=== PATIENT | male | born 1960 | race African-American/Black ===

== ENCOUNTER 2019-06-15 10:13 | Emergency (ER) | payer OTHER ==
[2019-06-15 10:36] VITALS: BP 147/90; PULSE 114; TEMP 102.7; BMI 21.4
[2019-06-15] MEDS ORDERED: ALBUTEROL SO4 2.5/IPRATROPIUM 0.5 INH SOL 3 ML VIAL.NEB. NEB ONE ×2 (11:22→11:28)
[2019-06-15] MEDS ORDERED: IBUPROFEN 600 MG TABLET (FP) PO ONE ×2 (11:22→11:29)
--- NOTE | 2019-06-15 11:30 | PDOC ---
History of Present Illness - General History Source: Patient Exam Limitations: No Limitations - History of Present Illness Initial Comments: 06/15/19 11:25 Patient is a 59-year-old male who presents to the ED with fever, body aches, cough and general unwell feeling since last night. He has a history of COPD and states he feels short of breath. He denies any sick contacts. He has not taken anything for his fever. He denies any allergies to medications. He does admit to having a cough but states that it is a dry cough and is not bringing up any sputum. He has been using his albuterol nebulizer without relief. <Shelly Finney - Last Filed: 06/15/19 12:46> <Homer Matute - Last Filed: 06/15/19 15:30> - General Chief Complaint: Cold Symptoms Stated Complaint: DIFFICULTY BREATHING Time Seen by Provider: 06/15/19 11:15 Past History - Past Medical History Asthma: Yes COPD: Yes - Surgical History Lung Surgery: (FOR RT SIDE PNEUMO W INTERNAL BLEEDING.) - Psycho Social/Smoking Cessation Hx Smoking History: Former smoker Have you smoked in the past 12 months: No Number of Cigarettes Smoked Daily: 6 Information on smoking cessation initiated: No 'Breaking Loose' booklet given: 06/04/14 Hx Alcohol Use: No Drug/Substance Use Hx: No Substance Use Type: None Hx Substance Use Treatment: No <Shelly Finney - Last Filed: 06/15/19 12:46> <Homer Matute - Last Filed: 06/15/19 15:30> - Past Medical History Allergies/Adverse Reactions: Allergies Allergy/AdvReac Type Severity Reaction Status Date / Time No Known Allergies Allergy Verified 11/22/15 14:16 Home Medications: Ambulatory Orders Tiotropium Bath [Spiriva] 1 inh PO DAILY 06/04/14 Albuterol Sulfate Inhaler - [Ventolin HFA Inhaler -] 1 - 2 inh PO QID #1 Budesonide/Formeterol Fumarate [SYMBICORT 80/4.5mcg -] 2 inh IH BID #1 inhaler 06/13/14 oxyCODONE HCL [Roxicodone -] 5 mg PO Q6H PRN #10 tablet 06/13/14 Oseltamivir Phosphate [Tamiflu] 75 mg PO BID #9 capsule 06/15/19 Review of Systems - Review of Systems Comments:: 06/15/19 11:26 - Review of Systems Able to Perform ROS?: Yes Constitutional: No: Night Sweats, Weakness; positive: fever, chills, loss of appetite HEENTM: No: Eye Pain, Vision changes, Ear Pain, Throat Pain, Throat Swelling, Mouth Pain, Difficulty Swallowing Respiratory: No: Sputum Production; positive: Cough, Shortness of Breath, Wheezing Cardiac (ROS): No: Chest Pain, Chest Tightness, Palpitations, Irregular Heart Beat, Edema ABD/GI: No: Nausea, Vomiting, Abdominal Pain, Diarrhea : No Dysuria, No Hematuria, No Frequency, No Urgency Musculoskeletal: No: Muscle Pain, Back Pain, Joint Pain, Muscle Weakness, Neck Pain; positive: Body aches Integumentary: No: Lesions, Rash Neurological: No: Headache, Numbness, Tingling, Weakness, Speech Difficulties <Shelly Finney - Last Filed: 06/15/19 12:46> *Physical Exam - Vital Signs Last Vital Signs Temp Pulse Resp BP Pulse Ox 102.7 F H 114 H 20 147/90 95 06/15/19 10:34 06/15/19 10:34 06/15/19 10:34 06/15/19 10:34 06/15/19 10:34 - Physical Exam 06/15/19 11:27 - Physical Exam General Appearance: Nourished, Appropriately Dressed, No Distress; general unwell appearing but nontoxic HEENT: EOMI, Normal Voice, moderate pharyngeal Erythema, No Muffled/Hoarse voice , No Tonsillar Exudate, moderate tonsillar Erythema, No Nasal Congestion, No Rhinorrhea, Hearing Grossly Normal, TMs Normal, No TM Bulging, No TM Dullness, No TM Erythema. Positive coryza Neck: Supple, anterior cervical lymphadenopathy appreciated bilaterally, No Rigidity, No Decreased range of motion Respiratory/Chest: Lungs Clear, Normal Breath Sounds. No Respiratory Distress, No Accessory Muscle Use. Good air entry bilaterally, no adventitious lung sounds, dry hacking cough appreciated Cardiovascular: Regular Rhythm, Regular Rate, S1, S2 Gastrointestinal/Abdominal: Normal Bowel Sounds, Soft. Non-tender, No Guarding , No Rebound, No Rigidity Musculoskeletal: Normal Inspection. No Decreased Range of Motion Extremity: Normal Capillary Refill, Normal Inspection Integumentary: Normal Color, Dry. No Rash Neurologic: business account leader II-XII NML intact, Fully Oriented, Alert, Normal Mood/Affect, Normal Response <Shelly Finney - Last Filed: 06/15/19 12:46> - Vital Signs Last Vital Signs Temp Pulse Resp BP Pulse Ox 102.7 F H 114 H 20 147/90 95 06/15/19 10:34 06/15/19 10:34 06/15/19 10:34 06/15/19 10:34 06/15/19 10:34 <Homer Matute - Last Filed: 06/15/19 15:30> ED Treatment Course - ADDITIONAL ORDERS Additional order review: 06/15/19 12:46 Laboratory Tests 06/15/19 11:45 Influenza A (Rapid) Positive A Influenza B (Rapid) Negative - RADIOLOGY Radiology Studies Ordered: Category Date Time Status CHEST PA & LAT [RAD] Stat Radiology 06/15/19 11:22 Ordered <Shelly Finney - Last Filed: 06/15/19 12:46> - Medications Given in the ED: ED Medications Discontinued Medications Generic Name Dose Route Start Last Admin Trade Name Freq PRN Reason Stop Dose Admin Albuterol/Ipratropium 1 amp 06/15/19 11:22 06/15/19 11:34 Duoneb - NEB 06/15/19 11:23 1 amp ONCE ONE Administration Ibuprofen 600 mg 06/15/19 11:22 06/15/19 11:35 Motrin - PO 06/15/19 11:23 600 mg ONCE ONE Administration Oseltamivir Phosphate 75 mg 06/15/19 12:15 06/15/19 12:28 Tamiflu - PO 06/15/19 12:16 75 mg ONCE ONE Administration <Homer Matute - Last Filed: 06/15/19 15:30> Medical Decision Making - Medical Decision Making 06/15/19 11:29 Assessment: Patient is a 59-year-old male with fever, body aches, cough and shortness of breath since yesterday. Plan: -DuoNeb x1 -Chest x-ray -Flu swab -Motrin p.o. -Will reassess 06/15/19 12:46 The patient has been made aware that he is influenza A+. We will start him on Tamiflu in the ED. We will send him home with another 4 days of Tamiflu. The patient should follow-up with his primary doctor within 1 to 2 days for repeat evaluation. He should increase fluids and get plenty of rest. He should take Tylenol and ibuprofen for fevers. He can continue to use his nebulizer treatments to help with his cough. He understands and agrees with this treatment and plan the patient is stable for discharge. <Shelly Finney - Last Filed: 06/15/19 12:46> - Medical Decision Making 06/15/19 15:30 I reviewed the case of the mid-level practitioner and was available for consultation while in the emergency department <Homer Matute - Last Filed: 06/15/19 15:30> Discharge - Discharge Information Problems reviewed: Yes <Shelly Finney - Last Filed: 06/15/19 12:46> <Homer Matute - Last Filed: 06/15/19 15:30> - Discharge Information Clinical Impression/Diagnosis: Influenza A Condition: Stable Disposition: HOME - Additional Discharge Information Prescriptions: Oseltamivir Phosphate [Tamiflu] 75 mg PO BID #9 capsule - Follow up/Referral Referrals: Zita Joyce MD [Primary Care Provider] - 2 Days - Patient Discharge Instructions Patient Printed Discharge Instructions: DI for Influenza -- Adult Additional Instructions: Get plenty of rest and drink plenty of fluids. Take Tylenol or ibuprofen for fevers or body aches. Take the Tamiflu as prescribed and complete the entire course. Follow-up with your primary doctor within 1 to 2 days for repeat evaluation. - Post Discharge Activity Work/Back to School Note: Back to Work
[2019-06-15] MEDS ORDERED: OSELTAMIVIR PHOSPHATE 75 MG CAPSULE PO ONE (12:15)
[2019-06-15] MEDS ORDERED: OSELTAMIVIR PHOSPHATE 75 MG CAPSULE ONE (12:24)
== END 2019-06-15 13:20 | disposition home or self-care (01) ==
LOC: JER 10:13
PROC: 3E0F7GC Introduction of Other Therapeutic Substance into Respiratory Tract, Via Natural or Artificial Opening (ICD-10-PCS; principal; 2019-06-15)
DX: J09.X2 Influenza due to identified novel influenza A virus with other respiratory manifestations (principal)
CPT/HCPCS: 71046-TC-FY; 87804; 94640; 99283-25

== ENCOUNTER 2021-06-18 03:35 | Observation (INO) | payer OTHER ==
[2021-06-18] MEDS ORDERED: ASPIRIN 81 MG CHEWABLE TABLETS ONE (03:44)
[2021-06-18 05:08] LABS: MEAN PLT VOLUME 7.3 fl (7.5-11.1)
[2021-06-18 05:10] LABS: BASO % 1.2 % (0-2.0); EOS % 2.6 % (0-4.5); HEMATOCRIT 43.1 % (35.4-49); HEMOGLOBIN 14.6 GM/dL (11.7-16.9); LYMPH % 28.9 % (8-40); MCH 33.2 pg (25.7-33.7); MCHC 33.9 g/dl (32.0-35.9); MONO % 10.3 % (3.8-10.2); PLATELET COUNT 243 10^3/uL (134-434); RDW 12.6 % (11.9-15.9); WHITE BLOOD COUNT 5.6 K/mm3 (4.0-10.0)
[2021-06-18 05:18] LABS: INR 1.03 (0.83-1.09); PROTHROMBIN TIME (PATIENT) 11.8 SEC (9.7-13.0)
[2021-06-18] MEDS ORDERED: ACETAMINOPHEN 1000 MG/100 ML BAG IVPB ONE (05:19)
[2021-06-18 05:21] LABS: ACTIVATED PTT 31.7 SECONDS (25.2-36.5)
[2021-06-18] MEDS ORDERED: ACETAMINOPHEN INJECTION 100 ML IVPB ONE (05:28)
[2021-06-18 05:34] LABS: CALCIUM 8.9 mg/dL (8.5-10.1)
[2021-06-18 05:35] LABS: ALBUMIN 3.9 g/dl (3.4-5.0); BLOOD UREA NITROGEN 8.4 mg/dL (7-18)
[2021-06-18 05:39] LABS: TOT PROT 7.1 g/dl (6.4-8.2)
[2021-06-18 05:43] LABS: N-TERMINAL BNP 47.5 pg/ml (5-125)
[2021-06-18] MEDS ORDERED: ENOXAPARIN NA (PORCINE) 40 MG/0.4 ML DISP.SYRIN SQ ONE (08:37)
[2021-06-18] MEDS: ALBUTEROL SO4 HFA INHALER IH SCH ×4 (08:39→20:35)
[2021-06-18] MEDS: TIOTROPIUM BROMIDE 2.5 MCG (SPIRIVA) RESPIMAT INHALER IH SCH (09:34)
[2021-06-18] MEDS: BUDESONIDE/FORMETEROL FUMARATE 80/4.5 mcg INHALER IH SCH ×2 (09:34→21:35)
[2021-06-18] MEDS: ENOXAPARIN NA (PORCINE) 40 MG/0.4 ML DISP.SYRIN SQ SCH (09:34)
[2021-06-18] MEDS ORDERED: FOLIC ACID INJECTION - 1 MG, THIAMINE HCL 100 MG, MULTIVIT INJECTION ADULT 10 ML in SOD... IVPB ONE (10:00)
[2021-06-18 10:49] LABS: PH,URINE 7.5 (5.0-8.0); URINE APPEARANCE CLEAR; URINE BILIRUBIN NEGATIVE (NEGATIVE); URINE COLOR YELLOW; URINE GLUCOSE (UA) NEGATIVE (NEGATIVE); URINE KETONE NEGATIVE (NEGATIVE); URINE LEUK ESTERASE NEGATIVE (NEGATIVE); URINE NITRITE NEGATIVE (NEGATIVE); URINE PROTEIN NEGATIVE (NEGATIVE)
[2021-06-18 10:59] LABS: METHADONE, UR NEGATIVE (NEGATIVE); PHENCYCLIDINE,URINE NEGATIVE (NEGATIVE); URINE BENZODIAZEPINES NEGATIVE (NEGATIVE)
[2021-06-18 11:00] LABS: OPIATES, URI NEGATIVE (NEGATIVE); URINE BARBITURATES NEGATIVE (NEGATIVE)
[2021-06-18 11:04] LABS: COCAINE, UR POSITIVE (NEGATIVE); URINE AMPHETAMINES NEGATIVE (NEGATIVE)
[2021-06-18 12:57] LABS: VENOUS BASE EXCESS -4.7 mmol/L (-2-2); VENOUS PCO2 37.9 mmHg (38-52); VENOUS PH 7.349 (7.310-7.410)
[2021-06-18] MEDS ORDERED: ALBUTEROL SO4 HFA INHALER IH ONE (13:42)
[2021-06-18] MEDS ORDERED: FAMOTIDINE 20 MG TABLET PO PRN (17:22)
[2021-06-18] MEDS ORDERED: SIMETHICONE 80 MG TAB.CHEW (FP) PO ONE (17:23)
[2021-06-18] MEDS ORDERED: ACETAMINOPHEN 325 MG TABLET (FP) PO PRN (17:53)
[2021-06-19 00:44] VITALS: BMI 21.5
[2021-06-19] MEDS: ALBUTEROL SO4 HFA INHALER IH SCH ×2 (01:05→05:42)
[2021-06-19] MEDS ORDERED: ALBUTEROL SO4 HFA INHALER IH PRN (07:41)
[2021-06-19 08:25] LABS: HEMATOCRIT 42.6 % (35.4-49); MCH 32.5 pg (25.7-33.7); MCHC 32.9 g/dl (32.0-35.9); MEAN CELL VOLUME 98.9 fl (80-96); MEAN PLT VOLUME 7.2 fl (7.5-11.1); PLATELET COUNT 238 10^3/uL (134-434); WHITE BLOOD COUNT 5.3 K/mm3 (4.0-10.0)
[2021-06-19 08:53] LABS: CALCIUM 8.5 mg/dL (8.5-10.1)
[2021-06-19 08:54] LABS: BLOOD UREA NITROGEN 11.1 mg/dL (7-18); MAGNESIUM 2.4 mg/dL (1.8-2.4)
[2021-06-19 08:55] LABS: PHOSPHOROUS 3.4 mg/dL (2.5-4.9)
[2021-06-19] MEDS: BUDESONIDE/FORMETEROL FUMARATE 80/4.5 mcg INHALER IH SCH (09:02)
[2021-06-19] MEDS: TIOTROPIUM BROMIDE 2.5 MCG (SPIRIVA) RESPIMAT INHALER IH SCH (09:02)
[2021-06-19] MEDS: ENOXAPARIN NA (PORCINE) 40 MG/0.4 ML DISP.SYRIN SQ SCH (09:02)
[2021-06-19 18:49] VITALS: BP 145/76; PULSE 74; TEMP 97.6
[2021-06-20] MEDS ORDERED: amLODIPine BESYLATE 5 MG TABLET (FP) PO SCH (10:00)
== END 2021-06-19 18:56 | disposition left against medical advice (07) ==
LOC: JER 03:35 → UNDOADMOB 05:48 → INTOOBSV 05:48 → JERBED 05:48 → J4S 20:28
PROVIDERS: ADMIT Internal Medicine
PROC: 3E033NZ Introduction of Analgesics, Hypnotics, Sedatives into Peripheral Vein, Percutaneous Approach (ICD-10-PCS; principal; 2021-06-18)
PROC: 3E023GC Introduction of Other Therapeutic Substance into Muscle, Percutaneous Approach (ICD-10-PCS; 2021-06-18)
PROC: 3E033GC Introduction of Other Therapeutic Substance into Peripheral Vein, Percutaneous Approach (ICD-10-PCS; 2021-06-18)
DX: R55 Syncope and collapse (principal); J44.9 Chronic obstructive pulmonary disease, unspecified; I10 Essential (primary) hypertension; J93.83 Other pneumothorax; F19.10 Other psychoactive substance abuse, uncomplicated; Z29.9 Encounter for prophylactic measures, unspecified
CPT/HCPCS: 36415; 70450-TC; 71045-TC-FY; 72125-TC; 80048; 80053; 80307; 81003; 82550; 82803; 83735; 83880; 84100; 84443; 84484; 85025; 85027; 85610; 85730; 93005; 93010; 93306-TC; 93880-TC; 96365; 96372; 96375; 97116-GP; 97162-GP; 99285-25; C9803; G0378; U0003; U0005

== ENCOUNTER 2023-05-01 17:03 | Inpatient (IN) | payer OTHER ==
[2023-05-01 18:06] VITALS: BMI 21.9
[2023-05-01] MEDS ORDERED: ALBUTEROL SO4 HFA INHALER IH PRN (20:49)
[2023-05-01] MEDS ORDERED: MAG HYDROX/AL HYDROX/SIMETH 30 ML UNIT-DOSE CUP PO PRN (23:24)
[2023-05-01] MEDS ORDERED: BENZOCAINE/MENTHOL (CHLORASEPTIC ) LOZENGE MM PRN (23:24)
[2023-05-01] MEDS ORDERED: P-EPHED 60MG/TRIPROLIDI 2.5MG TABLET PO PRN (23:24)
[2023-05-01] MEDS ORDERED: IBUPROFEN 400 MG TABLET (FP) PO PRN (23:24)
[2023-05-01] MEDS ORDERED: LOPERAMIDE HCL 2 MG CAPSULE PO PRN (23:24)
[2023-05-01] MEDS ORDERED: BENZONATATE 200 MG CAPSULE PO PRN (23:24)
[2023-05-01] MEDS ORDERED: hydrOXYzine PAMOATE 25 MG CAPSULE (FP) PO PRN (23:24)
[2023-05-01] MEDS ORDERED: ACETAMINOPHEN 325 MG TABLET (FP) PO PRN (23:24)
[2023-05-01] MEDS ORDERED: MAGNESIUM HYDROX 2400MG/30ML ORAL SUSPENSION 30 ML CUP PO PRN (23:24)
[2023-05-01] MEDS ORDERED: POLYETHYLENE GLYCOL (HEALTHYLAX) 3350 17 GM PACKET PO PRN (23:24)
[2023-05-01] MEDS ORDERED: NICOTINE POLACRILEX 2 MG GUM BUC PRN (23:24)
[2023-05-01] MEDS ORDERED: COLLOIDAL OATMEAL 1 BAR EACH TP PRN (23:24)
[2023-05-01] MEDS ORDERED: guaiFENesin 600 MG TABLET.ER (FP) PO PRN (23:24)
[2023-05-02] MEDS: ASPIRIN 81 MG CHEWABLE TABLETS PO SCH ×2 (02:21→02:25)
[2023-05-02] MEDS: MELATONIN 5 MG TABLETS PO SCH (02:21)
[2023-05-02] MEDS: amLODIPine BESYLATE 5 MG TABLET (FP) PO ONE ×2 (02:22→02:24)
[2023-05-02] MEDS: ATORVASTATIN CA 40 MG TABLET (FP) PO SCH (02:22)
[2023-05-02 02:30] VITALS: RESP 18
[2023-05-02] MEDS: FLUTICASONE/UMECLIDIN/VILANTER(100-62.5-25 TRELEGY ELLIPTA) INAHLER IH SCH (06:01)
[2023-05-02] MEDS: TUBERCULIN PPD 5 TU/0.1ML SYRINGE (IN PATIENT USE ONLY) ID ONE (07:50)
[2023-05-02 09:37] LABS: HEMOGLOBIN 13.3 GM/dL (11.7-16.9); MCHC 33.2 g/dl (32.0-35.9); MEAN CELL VOLUME 96.3 fl (80-96); MEAN PLT VOLUME 7.3 fl (7.5-11.1); PLATELET COUNT 255 10^3/uL (134-434); RBC 4.16 M/mm3 (4.00-5.60); RDW 13.6 % (11.9-15.9); WHITE BLOOD COUNT 5.4 K/mm3 (4.0-10.0)
[2023-05-02 09:40] LABS: CHLORIDE 112 mmol/L (98-107); SODIUM 144 mmol/L (136-145)
[2023-05-02 09:50] LABS: URINE APPEARANCE CLEAR; URINE BILIRUBIN NEGATIVE (NEGATIVE); URINE COLOR YELLOW; URINE GLUCOSE (UA) NEGATIVE (NEGATIVE); URINE KETONE TRACE (NEGATIVE); URINE LEUK ESTERASE NEGATIVE (NEGATIVE); URINE NITRITE NEGATIVE (NEGATIVE); URINE PROTEIN NEGATIVE (NEGATIVE)
[2023-05-02 09:55] LABS: CALCIUM 9.3 mg/dL (8.5-10.1)
[2023-05-02 09:56] LABS: ALBUMIN 3.2 g/dl (3.4-5.0); ANION GAP 5 mmol/L (4-13); BLOOD UREA NITROGEN 15.4 mg/dL (7-18); CO2 27 mmol/L (21-32); GLUCOSE,RANDOM 96 mg/dL (74-106)
[2023-05-02 09:59] LABS: SGOT/AST 9 U/L (15-37); SGPT/ALT 13 U/L (13-61)
[2023-05-02 10:00] LABS: BILIRUBIN,TOTAL 0.6 mg/dL (0.2-1); TOT PROT 6.2 g/dl (6.4-8.2)
[2023-05-02 10:02] LABS: ALK PHOS 77 U/L (45-117)
[2023-05-02] MEDS: PRENATAL VITAMINS W/ FOLIC ACID TABLET (FP) PO SCH (10:10)
[2023-05-02] MEDS: NIFEdipine E.R 60 MG TABLET PO SCH (10:10)
[2023-05-02 15:34] LABS: SYPHILIS W/ RPR CONF NON-REACTIVE (NONREACTIVE)
[2023-05-02] MEDS: THIAMINE HCL 100 MG TABLET (FP) PO SCH (21:02)
[2023-05-02] MEDS: traZODone HCL 50 MG TABLET (FP) PO SCH (21:09)
[2023-05-03] MEDS: IBUPROFEN 600 MG TABLET (FP) PO PRN (19:34)
[2023-05-04] MEDS: BENZOCAINE 20 % GEL TUBE MM PRN (21:38)
[2023-05-05] MEDS: ASPIRIN 81 MG CHEWABLE TABLETS PO SCH (12:32)
[2023-05-05 12:34] VITALS: TEMP 98
[2023-05-05 12:35] VITALS: BP 133/91; PULSE 74
== END 2023-05-06 01:25 | disposition short-term general hospital (02) | DRG 772 ==
LOC: YASAS 17:03 → Y5N 05-02 01:53
PROVIDERS: ADMIT Allergy & Immunology; ATTEND Psychiatry & Neurology Pain Medicine
PROC: HZ42ZZZ Group Counseling for Substance Abuse Treatment, Cognitive-Behavioral (ICD-10-PCS; principal; 2023-05-02)
DX: F14.20 Cocaine dependence, uncomplicated (principal); F10.20 Alcohol dependence, uncomplicated; F17.210 Nicotine dependence, cigarettes, uncomplicated; F41.9 Anxiety disorder, unspecified; I10 Essential (primary) hypertension; J44.9 Chronic obstructive pulmonary disease, unspecified; R07.9 Chest pain, unspecified; R06.00 Dyspnea, unspecified; R26.89 Other abnormalities of gait and mobility; I69.898 Other sequelae of other cerebrovascular disease; I69.851 Hemiplegia and hemiparesis following other cerebrovascular disease affecting right dominant side; Z99.89 Dependence on other enabling machines and devices
CPT/HCPCS: 36415; 80053; 80307; 81003; 82962; 85027; 86780; 86803; 87635; 87811; 93005; 93010

== ENCOUNTER 2023-05-05 13:14 | Observation (INO) | payer OTHER ==
[2023-05-05] MEDS ORDERED: LIDOCAINE 5% TOPICAL PATCH TP ONE (14:35)
[2023-05-05] MEDS ORDERED: SODIUM CHLORIDE 0.9% 500 ML INFUS.BAG IV ONE (14:35)
[2023-05-05] MEDS ORDERED: LIDOCAINE 4% PATCH TP ONE ×2 (14:44)
[2023-05-05 15:00] LABS: BASO % 1.3 % (0-2.0); EOS % 3.1 % (0-4.5); HEMATOCRIT 48.3 % (35.4-49); HEMOGLOBIN 15.8 GM/dL (11.7-16.9); MCH 31.4 pg (25.7-33.7); MCHC 32.7 g/dl (32.0-35.9); MEAN CELL VOLUME 96.1 fl (80-96); MEAN PLT VOLUME 7.1 fl (7.5-11.1); MONO % 8.5 % (3.8-10.2); NEUT % 69.1 % (42.8-82.8); PLATELET COUNT 325 10^3/uL (134-434); RBC 5.02 M/mm3 (4.00-5.60); RDW 13.6 % (11.9-15.9); WHITE BLOOD COUNT 7.9 K/mm3 (4.0-10.0)
[2023-05-05 15:07] LABS: INR 0.99 (0.83-1.09); PROTHROMBIN TIME (PATIENT) 11.5 SEC (9.7-13.0)
[2023-05-05 15:09] LABS: ACTIVATED PTT 32.2 SECONDS (25.2-36.5)
[2023-05-05 15:26] LABS: CALCIUM 9.9 mg/dL (8.5-10.1)
[2023-05-05 15:27] LABS: BLOOD UREA NITROGEN 14.4 mg/dL (7-18)
[2023-05-05 15:30] LABS: CREATININE 0.9 mg/dL (0.55-1.3)
[2023-05-05 15:32] LABS: BILIRUBIN,TOTAL 1.2 mg/dL (0.2-1); TOT PROT 7.9 g/dl (6.4-8.2)
[2023-05-05 15:33] LABS: ALBUMIN 4.1 g/dl (3.4-5.0)
[2023-05-05] MEDS ORDERED: LACTATED RINGERS SOLUTION 1,000 ML IV SCH (17:45)
[2023-05-05] MEDS ORDERED: IBUPROFEN 400 MG TABLET (FP) PO PRN (17:45)
[2023-05-05] MEDS ORDERED: LIDOCAINE PATCH REMOVAL MC ONE (22:00)
[2023-05-05] MEDS ORDERED: ATORVASTATIN CA 80 MG TABLET (FP) ONE (22:10)
[2023-05-05] MEDS: ATORVASTATIN CA 80 MG TABLET (FP) PO SCH (22:22)
[2023-05-05] MEDS: LIDOCAINE PATCH REMOVAL MC SCH (22:22)
[2023-05-05] MEDS: BUDESONIDE/FORMETEROL FUMARATE 80/4.5 mcg INHALER IH SCH (22:22)
[2023-05-06 07:16] LABS: EOS % 3.6 % (0-4.5); HEMATOCRIT 40.2 % (35.4-49); HEMOGLOBIN 13.3 GM/dL (11.7-16.9); LYMPH % 23.8 % (8-40); MCH 31.8 pg (25.7-33.7); MEAN CELL VOLUME 96.5 fl (80-96); MEAN PLT VOLUME 7.1 fl (7.5-11.1); NEUT % 62.6 % (42.8-82.8); PLATELET COUNT 263 10^3/uL (134-434); RBC 4.17 M/mm3 (4.00-5.60); RDW 13.5 % (11.9-15.9); WHITE BLOOD COUNT 6.2 K/mm3 (4.0-10.0)
[2023-05-06 07:30] LABS: POTASSIUM 3.9 mmol/L (3.5-5.1)
[2023-05-06 07:37] LABS: ALBUMIN 3.3 g/dl (3.4-5.0); BLOOD UREA NITROGEN 13.6 mg/dL (7-18); MAGNESIUM 2.2 mg/dL (1.8-2.4)
[2023-05-06 07:39] LABS: PHOSPHOROUS 3.4 mg/dL (2.5-4.9)
[2023-05-06 07:40] LABS: CREATININE 0.7 mg/dL (0.55-1.3)
[2023-05-06 07:41] LABS: BILIRUBIN,TOTAL 1.1 mg/dL (0.2-1); TOT PROT 6.5 g/dl (6.4-8.2)
[2023-05-06 07:44] LABS: CALCIUM 8.4 mg/dL (8.5-10.1)
[2023-05-06] MEDS: NIFEdipine E.R 60 MG TABLET PO SCH (11:57)
[2023-05-06] MEDS: ASPIRIN 81 MG CHEWABLE TABLETS PO SCH (11:57)
[2023-05-06] MEDS: NICOTINE 14 MG/24 HOURS TOPICAL PATCH TD SCH (11:57)
[2023-05-06] MEDS: ENOXAPARIN NA (PORCINE) 40 MG/0.4 ML DISP.SYRIN SQ SCH (11:57)
[2023-05-06] MEDS: PANTOPRAZOLE 40 MG TABLET PO SCH (11:57)
[2023-05-06] MEDS: BUDESONIDE/FORMETEROL FUMARATE 80/4.5 mcg INHALER IH SCH ×2 (12:31→21:32)
[2023-05-06 13:34] VITALS: RESP 18
[2023-05-06 14:43] VITALS: BMI 20.5
[2023-05-06] MEDS ORDERED: SODIUM CHLORIDE 1,000 ML IV SCH (16:45)
[2023-05-06 17:35] LABS: METHADONE, UR NEGATIVE (NEGATIVE); URINE BENZODIAZEPINES NEGATIVE (NEGATIVE)
[2023-05-06 17:36] LABS: OPIATES, URI NEGATIVE (NEGATIVE)
[2023-05-06 17:41] LABS: COCAINE, UR POSITIVE (NEGATIVE); PHENCYCLIDINE,URINE NEGATIVE (NEGATIVE); URINE AMPHETAMINES NEGATIVE (NEGATIVE); URINE BARBITURATES NEGATIVE (NEGATIVE)
[2023-05-06] MEDS: ATORVASTATIN CA 80 MG TABLET (FP) PO SCH (21:13)
[2023-05-06] MEDS: LIDOCAINE PATCH REMOVAL MC SCH (21:36)
[2023-05-07 06:26] VITALS: TEMP 98.4
[2023-05-07] MEDS: ENOXAPARIN NA (PORCINE) 40 MG/0.4 ML DISP.SYRIN SQ SCH (10:12)
[2023-05-07] MEDS: ASPIRIN 81 MG CHEWABLE TABLETS PO SCH (10:12)
[2023-05-07] MEDS: PANTOPRAZOLE 40 MG TABLET PO SCH (10:12)
[2023-05-07] MEDS: NICOTINE 14 MG/24 HOURS TOPICAL PATCH TD SCH (10:12)
[2023-05-07] MEDS: NIFEdipine E.R 60 MG TABLET PO SCH (10:12)
[2023-05-07] MEDS: BUDESONIDE/FORMETEROL FUMARATE 80/4.5 mcg INHALER IH SCH (10:13)
[2023-05-07 11:40] VITALS: BP 128/74; PULSE 64
== END 2023-05-07 04:05 | disposition other institution (70) ==
LOC: JER 13:14 → JERBED 16:35 → J4W 05-06 13:38
PROVIDERS: ADMIT Internal Medicine; ATTEND Internal Medicine
PROC: 3E023GC Introduction of Other Therapeutic Substance into Muscle, Percutaneous Approach (ICD-10-PCS; principal; 2023-05-05)
PROC: 3E0337Z Introduction of Electrolytic and Water Balance Substance into Peripheral Vein, Percutaneous Approach (ICD-10-PCS; 2023-05-05)
DX: J44.9 Chronic obstructive pulmonary disease, unspecified (principal); I10 Essential (primary) hypertension; R23.8 Other skin changes; F19.10 Other psychoactive substance abuse, uncomplicated; R55 Syncope and collapse; R07.89 Other chest pain; Z29.89 Encounter for other specified prophylactic measures; F17.210 Nicotine dependence, cigarettes, uncomplicated
CPT/HCPCS: 0241U-QW; 36415; 70450-TC; 71045-TC-FY; 80053; 80307; 83735; 84100; 84484; 85025; 85610; 85730; 93005; 93010; 96360; 96361; 96372; 97116-GP; 97161-GP; 99285-25; G0378

== ENCOUNTER 2024-01-03 14:15 | Inpatient (IN) | payer OTHER ==
[2024-01-03 14:35] VITALS: BMI 22.8
[2024-01-03] MEDS ORDERED: MAG HYDROX/AL HYDROX/SIMETH 30 ML UNIT-DOSE CUP PO PRN (16:49)
[2024-01-03] MEDS ORDERED: MAGNESIUM HYDROX 2400MG/30ML ORAL SUSPENSION 30 ML CUP PO PRN (16:49)
[2024-01-03] MEDS ORDERED: guaiFENesin 600 MG TABLET.ER (FP) PO PRN (16:49)
[2024-01-03] MEDS ORDERED: NALOXONE (NARCAN) HCL 4 MG/0.1 ML SPRAY NS PRN (16:49)
[2024-01-03] MEDS ORDERED: BENZONATATE 200 MG CAPSULE PO PRN (16:49)
[2024-01-03] MEDS ORDERED: IBUPROFEN 400 MG TABLET (FP) PO PRN (16:49)
[2024-01-03] MEDS ORDERED: DICYCLOMINE HCL 10 MG CAPSULE PO PRN (16:49)
[2024-01-03] MEDS ORDERED: POLYETHYLENE GLYCOL (HEALTHYLAX) 3350 17 GM PACKET PO PRN (16:49)
[2024-01-03] MEDS ORDERED: BENZOCAINE/MENTHOL (CHLORASEPTIC ) LOZENGE MM PRN (16:49)
[2024-01-03] MEDS ORDERED: NICOTINE POLACRILEX 2 MG GUM BUC PRN (16:49)
[2024-01-03] MEDS ORDERED: LOPERAMIDE HCL 2 MG CAPSULE PO PRN (16:49)
[2024-01-03] MEDS ORDERED: BISMUTH SUBSALICYLATE 524 MG/30 ML PO PRN (16:49)
[2024-01-03] MEDS ORDERED: ONDANSETRON *ODT* 4 MG TABLET SL PRN (16:49)
[2024-01-03] MEDS ORDERED: NALOXONE HCL 0.4 MG/ML VIAL IM PRN (16:49)
[2024-01-03] MEDS ORDERED: IBUPROFEN 600 MG TABLET (FP) PO PRN (16:49)
[2024-01-03] MEDS ORDERED: ACETAMINOPHEN 325 MG TABLET (FP) PO PRN (16:49)
[2024-01-03] MEDS: MELATONIN 5 MG TABLETS PO SCH (23:14)
[2024-01-03] MEDS: THIAMINE 100 MG TABLET PO SCH (23:15)
[2024-01-04] MEDS: METHOCARBAMOL 500 MG TABLET PO PRN (09:50)
[2024-01-04] MEDS: PRENATAL VITAMINS W/ FOLIC ACID TABLET (FP) PO SCH (09:50)
[2024-01-04] MEDS: hydrOXYzine PAMOATE 25 MG CAPSULE (FP) PO PRN (09:50)
[2024-01-04] MEDS: FLUoxetine HCL 20 MG CAPSULE PO SCH (09:50)
[2024-01-04] MEDS: OLANZapine 5 MG TABLET PO SCH (09:50)
[2024-01-04] MEDS ORDERED: FLUoxetine HCL 10 MG TABLET PO SCH (10:00)
[2024-01-04] MEDS ORDERED: ALBUTEROL SO4 HFA INHALER IH PRN (10:20)
[2024-01-04] MEDS: ASPIRIN COATED 81 MG TABLET.EC PO SCH (10:53)
[2024-01-04] MEDS: NIFEdipine E.R 60 MG TABLET PO SCH (10:53)
[2024-01-04 12:30] LABS: HEMATOCRIT 39.6 % (35.4-49); HEMOGLOBIN 13.4 GM/dL (11.7-16.9); MCH 32.6 pg (25.7-33.7); MCHC 33.7 g/dl (32.0-35.9); MEAN CELL VOLUME 96.6 fl (80-96); MEAN PLT VOLUME 7.1 fl (7.5-11.1); PLATELET COUNT 269 10^3/uL (134-434); RDW 12.9 % (11.9-15.9); WHITE BLOOD COUNT 5.3 K/mm3 (4.0-10.0)
[2024-01-04 12:38] LABS: CHLORIDE 110 mmol/L (98-107); POTASSIUM 4.3 mmol/L (3.5-5.1); SODIUM 143 mmol/L (136-145)
[2024-01-04 12:45] LABS: ALBUMIN 3.5 g/dl (3.4-5.0); ANION GAP 3 mmol/L (4-13); BLOOD UREA NITROGEN 15.8 mg/dL (7-18); CO2 30 mmol/L (21-32); GLUCOSE,RANDOM 84 mg/dL (74-106)
[2024-01-04 12:47] LABS: BILIRUBIN,TOTAL 0.8 mg/dL (0.2-1)
[2024-01-04 12:48] LABS: SGOT/AST 10 U/L (15-37); SGPT/ALT 19 U/L (13-61)
[2024-01-04 12:49] LABS: ALK PHOS 86 U/L (45-117); TOT PROT 6.4 g/dl (6.4-8.2)
[2024-01-04] MEDS: ATORVASTATIN CA 80 MG TABLET (FP) PO SCH (22:18)
[2024-01-04] MEDS: QUEtiapine FUMARATE 100 MG TABLET (FP) PO SCH (22:18)
[2024-01-04] MEDS: BUDESONIDE/FORMETEROL FUMARATE 80/4.5 mcg INHALER IH SCH (22:46)
[2024-01-05] MEDS: TIOTROPIUM BROMIDE 2.5 MCG (SPIRIVA) RESPIMAT INHALER IH SCH (10:50)
[2024-01-06 06:18] VITALS: RESP 16
[2024-01-06 08:36] VITALS: BP 123/86; PULSE 64; TEMP 98
== END 2024-01-06 09:45 | disposition home or self-care (01) | DRG 774 ==
LOC: YASAS 14:15 → Y6N 17:09
PROVIDERS: ADMIT Surgery; ATTEND Surgery
PROC: HZ2ZZZZ Detoxification Services for Substance Abuse Treatment (ICD-10-PCS; principal; 2024-01-03)
DX: F10.230 Alcohol dependence with withdrawal, uncomplicated (principal); F14.20 Cocaine dependence, uncomplicated; F12.20 Cannabis dependence, uncomplicated; F17.210 Nicotine dependence, cigarettes, uncomplicated; F41.9 Anxiety disorder, unspecified; F32.9 Major depressive disorder, single episode, unspecified; I10 Essential (primary) hypertension; J44.9 Chronic obstructive pulmonary disease, unspecified; I69.851 Hemiplegia and hemiparesis following other cerebrovascular disease affecting right dominant side; Z88.8 Allergy status to other drugs, medicaments and biological substances
CPT/HCPCS: 36415; 80053; 80305; 80307; 85027; 86780; 93005; 93010

== ENCOUNTER 2024-01-09 02:54 | Inpatient (IN) | payer OTHER ==
[2024-01-09 03:21] VITALS: BMI 22.6
[2024-01-09] MEDS ORDERED: NICOTINE POLACRILEX 2 MG GUM BUC PRN (03:37)
[2024-01-09] MEDS ORDERED: MAGNESIUM HYDROX 2400MG/30ML ORAL SUSPENSION 30 ML CUP PO PRN (03:37)
[2024-01-09] MEDS ORDERED: guaiFENesin 600 MG TABLET.ER (FP) PO PRN (03:37)
[2024-01-09] MEDS ORDERED: BENZOCAINE/MENTHOL (CHLORASEPTIC ) LOZENGE MM PRN (03:37)
[2024-01-09] MEDS ORDERED: NALOXONE (NARCAN) HCL 4 MG/0.1 ML SPRAY NS PRN (03:37)
[2024-01-09] MEDS ORDERED: ACETAMINOPHEN 325 MG TABLET (FP) PO PRN (03:37)
[2024-01-09] MEDS ORDERED: IBUPROFEN 600 MG TABLET (FP) PO PRN (03:37)
[2024-01-09] MEDS ORDERED: IBUPROFEN 400 MG TABLET (FP) PO PRN (03:37)
[2024-01-09] MEDS ORDERED: NALOXONE HCL 0.4 MG/ML VIAL IVPUSH PRN (03:37)
[2024-01-09] MEDS ORDERED: POLYETHYLENE GLYCOL (HEALTHYLAX) 3350 17 GM PACKET PO PRN (03:37)
[2024-01-09] MEDS ORDERED: BENZONATATE 200 MG CAPSULE PO PRN (03:37)
[2024-01-09] MEDS ORDERED: LOPERAMIDE HCL 2 MG CAPSULE PO PRN (03:37)
[2024-01-09] MEDS ORDERED: MAG HYDROX/AL HYDROX/SIMETH 30 ML UNIT-DOSE CUP PO PRN (03:37)
[2024-01-09] MEDS: PRENATAL VITAMINS W/ FOLIC ACID TABLET (FP) PO SCH (10:34)
[2024-01-09] MEDS: NICOTINE 14 MG/24 HOURS TOPICAL PATCH TD SCH (10:34)
[2024-01-09] MEDS: THIAMINE 100 MG TABLET PO SCH (21:37)
[2024-01-09] MEDS: MELATONIN 5 MG TABLETS PO SCH (21:37)
[2024-01-09] MEDS: QUEtiapine FUMARATE 100 MG TABLET (FP) PO SCH (21:37)
[2024-01-10] MEDS: FLUoxetine HCL 20 MG CAPSULE PO SCH (10:06)
[2024-01-10] MEDS: NIFEdipine E.R 60 MG TABLET PO SCH (10:06)
[2024-01-10] MEDS: OLANZapine 5 MG TABLET PO SCH (10:06)
[2024-01-14] MEDS ORDERED: NICOTINE 14 MG/24 HOURS TOPICAL PATCH TD PRN (08:32)
[2024-01-14] MEDS ORDERED: ALBUTEROL SO4 HFA INHALER IH PRN (14:22)
[2024-01-14] MEDS: ATORVASTATIN CA 80 MG TABLET (FP) PO SCH (21:25)
[2024-01-14] MEDS: BUDESONIDE/FORMETEROL FUMARATE 80/4.5 mcg INHALER IH SCH (21:25)
[2024-01-15] MEDS: TIOTROPIUM BROMIDE 2.5 MCG (SPIRIVA) RESPIMAT INHALER IH SCH (10:34)
[2024-01-15] MEDS: MELATONIN 5 MG TABLETS PO SCH (21:17)
[2024-01-20 07:06] VITALS: RESP 16; TEMP 98
[2024-01-20 08:49] VITALS: BP 111/75; PULSE 70
== END 2024-01-20 09:31 | disposition home or self-care (01) | DRG 772 ==
LOC: YASAS 02:54 → Y3NR 03:40 → Y3E 01-11 14:07
PROVIDERS: ADMIT Allergy & Immunology; ATTEND Psychiatry & Neurology Pain Medicine
PROC: HZ42ZZZ Group Counseling for Substance Abuse Treatment, Cognitive-Behavioral (ICD-10-PCS; principal; 2024-01-09)
DX: F10.20 Alcohol dependence, uncomplicated (principal); F14.20 Cocaine dependence, uncomplicated; F17.210 Nicotine dependence, cigarettes, uncomplicated; F41.9 Anxiety disorder, unspecified; F32.A Depression, unspecified; I10 Essential (primary) hypertension; J44.9 Chronic obstructive pulmonary disease, unspecified; I69.851 Hemiplegia and hemiparesis following other cerebrovascular disease affecting right dominant side; Z88.8 Allergy status to other drugs, medicaments and biological substances
CPT/HCPCS: 36415; 80305; 86803; 87811